=== PATIENT | male | born 1965 ===

== ENCOUNTER 2020-03-09 14:05 | Observation (INO) | payer SELFPAY ==
[2020-03-09 14:54] LABS: #Basophils 0.1 thou/uL (0.0-0.2); #Eosinphils 0.1 thou/uL (0.0-0.7); #Lymphocytes 1.6 thou/uL (1.20-3.40); #Monocytes 0.6 thou/uL (0.11-0.59); %Basophils 0.7 % (0.0-1.0); %Eosinophils 1.2 % (0.0-10.0); %Lymphocytes 15.2 % (21.0-51.0); %Monocytes 5.6 % (0.0-10.0); %Neutrophils 77.4 % (42.0-75.0); Hemoglobin 15.3 g/dL (14.0-18.0); Mean Corpuscular HGB CONC 34.2 g/dL (32.0-36.0); Mean Corpuscular Volume 96.4 fL (78.0-98.0); Mean Platelet Volume 8.1 fL (7.4-10.4); Platelet Count 280 thou/uL (130-400); Red Blood Cell (RBC) Count 4.64 mill/uL (4.70-6.10); White Blood Cell (WBC) Count 10.3 thou/uL (4.8-10.8)
[2020-03-09 15:18] LABS: ALT (SGPT) 14 U/L (8-55); AST (SGOT) 15 U/L (5-34); Albumin 4.3 g/dL (3.5-5.0); Alkaline Phosphatase 64 U/L (40-110); Anion Gap 16 mmol/L (10-20); BUN (Urea Nitrogen) 12 mg/dL (8.4-25.7); Bilirubin, Total 0.5 mg/dL (0.2-1.2); CK (CPK) 122 U/L (30-200); Calc. Creatinine Clearance 0 mL/min (70-130); Carbon Dioxide 24 mmol/L (22-29); Chloride 106 mmol/L (98-107); Estimated GFR-MDRD Greater than 90; Globulin 2.7 g/dL (2.4-3.5); Glucose 141 mg/dL (70-105); Lipase 17 U/L (8-78); Potassium 3.4 mmol/L (3.5-5.1); Sodium 143 mmol/L (136-145)
[2020-03-09] MEDS ORDERED: Ondansetron PF 4 MG/2 ML Vial ONE (15:52)
[2020-03-09] MEDS ORDERED: Morphine 4 MG/ML VIAL ONE (15:52)
--- NOTE | 2020-03-09 16:48 | RAD ---
CHEST 1 VIEW: Date: 03/09/2020 INDICATION: Chest pain with nausea and vomiting. COMPARISON: None. FINDINGS: Lungs are clear. Heart size is normal. No pleural effusion or pneumothorax is evident. No acute osseo us abnormality is evident. IMPRESSION: No acute cardiopulmonary abnormality. POS: BH
--- NOTE | 2020-03-09 17:54 | PDOC.HHP ---
Hospitalist HPI - History of Present Illness chest pain History of Present Illness: PCP: Dr. Johnnie Savage The patient is a 54-year-old male with a past medical history significant for coronary artery disease (on aspirin and Plavix), and hyperlipidemia that presents to the emergency department via EMS for the above complaint. The patient reports the onset of chest pain at approximately 8 AM this morning. He thought it was indigestion, related to eating [employer] the previous night. The pain is located left upper quadrant and left chest, nonradiating, described as "feels like indigestion", with associated belching, burping and bloating, exacerbated and relieved by nothing. He reports that the symptoms are similar to the symptoms he had when he had his heart attack. Patient has a history of C AD with 2 stents to his LAD (2016). Denies any heart palpitations, swelling to lower extremities. Denies tearing or shearing pain. Denies shortness of breath or cough. No history of COPD/asthma. No history of DVT/PE. He abuses marijuana. He denies any other illicit drug use. Denies any hemoptysis, hematemesis, melena or hematochezia. Denies any urinary symptoms. EMS was called. Patient was bradycardic HR 54, normal BP, RR, SPO2, afebrile. Patient was given full dose aspirin and 1 spray of sublingual nitro with no relief of symptoms. ED Course: VITAL SIGNS [facility] Mar 09, 2020 14:08 DANA Lewis Laine BP: 137/97, Pulse: 66, Resp: 22, Temp: 97.6 (Oral), Pain: 7, O2 sat: 100 on (Room Air), Time: 03/09/2020 14:08. VITAL SIGNS [facility] Mar 09, 2020 14:30 DANA Lewis Laine BP: 149/91, Pulse: 48, Resp: 12, Time: 03/09/2020 14:30. VITAL SIGNS [facility] Mar 09, 2020 15:10 DANA Lewis Laine BP: 130/90, Pulse: 58, Resp: 20, O2 sat: 100 on (Room Air), Time: 03/09/2020 15:10. VITAL SIGNS [facility] Mar 09, 2020 15:30 DANA Lewis Laine BP: 143/88, Pulse: 48, Resp: 16, O2 sat: 100 on (Room Air), Time: 03/09/2020 15:30. Zofran intravenous 4 mg IV Push Given 16:00 03/09/2020 morphine injection 4 mg IV Push Given 16:00 03/09/2020 Hospitalist ROS - Review of Systems All other systems reviewed; all pertinent +/- noted in HPI/Subj - Medication Medications: Plavix 75 mg p.o. daily Rosuvastatin 40 mg p.o. nightly Aspirin 81 mg p.o. daily Allergies: Penicillins Hospitalist History - Past Medical History Source: patient, RN notes reviewed Cardiac: reports: CAD (X2 (2017)), Hyperlipidemia - Past Surgical History Past Surgical History: reports: Other (CAD x2 (2017)) - Family History Family History: denies: cardiac disorder, respiratory disorder - Social History Smoking Status: Current every day smoker (1 pack/day) Alcohol: reports: None Drugs: reports: marijuana Living Situation: With Family Activity level: independent ambulation - Exam General Appearance: NAD, awake alert Eye: PERRL, anicteric sclera ENT: normocephalic atraumatic Neck: supple, symmetric Heart: RRR, no murmur, no gallops, no rubs, normal peripheral pulses Respiratory: CTAB, no wheezes, no rales, no ronchi, normal chest expansion, no tachypnea Gastrointestinal: soft, non-tender, non-distended, normal bowel sounds, no bruit, no guarding, no rigidity Extremities: no cyanosis, no edema Skin: no rashes (Right overall) Neurological: no weakness, no focal deficits. negative: facial droop, speech deficit Musculoskeletal: normal tone, normal strength Psychiatric: normal affect, A&O x 3 Hospitalist Results - Labs Result Diagrams: 03/09/20 14:43 03/09/20 14:42 Lab results: WBC 10.3 thou/uL (4.8-10.8) 03/09/20 14:43 Hgb 15.3 g/dL (14.0-18.0) 03/09/20 14:43 Hct 44.7 % (42.0-52.0) 03/09/20 14:43 MCV 96.4 fL (78.0-98.0) 03/09/20 14:43 Plt Count 280 thou/uL (130-400) 03/09/20 14:43 Neutrophils % 77.4 % (42.0-75.0) H 03/09/20 14:43 Sodium 143 mmol/L (136-145) 03/09/20 14:42 Potassium 3.4 mmol/L (3.5-5.1) L 03/09/20 14:42 Chloride 106 mmol/L (98-107) 03/09/20 14:42 Carbon Dioxide 24 mmol/L (22-29) 03/09/20 14:42 BUN 12 mg/dL (8.4-25.7) 03/09/20 14:42 Creatinine 0.76 mg/dL (0.7-1.3) 03/09/20 14:42 Glucose 141 mg/dL (70-105) H 03/09/20 14:42 Calcium 9.0 mg/dL (7.8-10.44) 03/09/20 14:42 Total Bilirubin 0.5 mg/dL (0.2-1.2) 03/09/20 14:42 AST 15 U/L (5-34) 03/09/20 14:42 ALT 14 U/L (8-55) 03/09/20 14:42 Alkaline Phosphatase 64 U/L (40-110) 03/09/20 14:42 Creatine Kinase 122 U/L (30-200) 03/09/20 14:42 Troponin I Less than 0.010 ng/mL (< 0.028) 03/09/20 14:42 Serum Total Protein 7.0 g/dL (6.0-8.3) 03/09/20 14:42 Albumin 4.3 g/dL (3.5-5.0) 03/09/20 14:42 Lipase 17 U/L (8-78) 03/09/20 14:42 - EKG Interpretation EKG: EKG shows sinus bradycardia with short OH otherwise normal EKG rate is 53 beats per. - Radiology Interpretation Chest x-ray Status: report reviewed by me Additional Comment: IMPRESSION: No acute cardiopulmonary abnormality. Hospitalist H&P A/P - Problem (1) Chest pain Code(s): R07.9 - CHEST PAIN, UNSPECIFIED Status: Acute (2) Bradycardia Code(s): R00.1 - BRADYCARDIA, UNSPECIFIED Status: Acute (3) CAD (coronary artery disease) Code(s): I25.10 - ATHSCL HEART DISEASE OF [place] CORONARY ARTERY W/O ANG PCTRS Status: Chronic (4) HLD (hyperlipidemia) Code(s): E78.5 - HYPERLIPIDEMIA, UNSPECIFIED Status: Chronic (5) Tobacco abuse Code(s): Z72.0 - TOBACCO USE Status: Chronic (6) Marijuana abuse Code(s): F12.10 - CANNABIS ABUSE, UNCOMPLICATED Status: Chronic - Plan Plan: 54/M with PMH CAD and HLD presents for chest pain. Admit to telemetry floor, observation status. Expected length of stay less than 2 midnights. EKG sinus bradycardia, no ST elevations. Chest x-ray negative for acute process. Initial troponin negative. #Chest pain Heart score 5, high risk. Wells PE score 0. Trend troponins, check BNP, TSH, FLP, mag, UA/UDS. Continue aspirin, SL nitro as needed, statin N.p.o. Nuc med cardiac stress test in the a.m. #Bradycardia EKG SB, 50s, no ST elevation. Order echocardiogram. Check electrolytes and TSH level. Continue cardiac monitoring. #Hypokalemia Mild. K 3.4. Check magnesium level. Recheck level in a.m. #CAD 2 stents to the LAD (2017) Continue home dose of aspirin and Plavix. #Hyperlipidemia Continue home dose rosuvastatin 40 mg nightly. Check FLP. #Tobacco abuse 1 pack/day history Unwilling to quit. Counseled tobacco cessation. #Marijuana abuse Unwilling to quit. Check UDS. SCDs for DVT prophylaxis. Protonix for GI prophylaxis. Full code. Designated medical decision-maker is his Clara. Discussed case with Dr. Diaz.
[2020-03-09] MEDS ORDERED: Mag-Al 1200 mg/1200 mg/30 ML UDCUP ONE (18:26)
[2020-03-09] MEDS ORDERED: Lidocaine Viscous Sol 2% 15 ml UD Cup ONE (18:26)
[2020-03-09] MEDS ORDERED: Nitroglycerin 0.4 MG TAB (25 Tab Bottle) SL PRN (18:42)
[2020-03-09] MEDS ORDERED: Calcium Carbonate 500 MG ChewTAB PO PRN (18:46)
[2020-03-09] MEDS ORDERED: Senokot S 8.6-50 MG TAB PO PRN (18:46)
[2020-03-09] MEDS ORDERED: Acetaminophen 325 MG TAB PO PRN (18:46)
[2020-03-09] MEDS ORDERED: Ondansetron ODT 4 MG TAB PO PRN (18:46)
[2020-03-09] MEDS ORDERED: Ondansetron PF 4 MG/2 ML Vial IVP PRN (18:46)
[2020-03-09 19:40] LABS: Troponin I Less than 0.010 ng/mL (< 0.028)
[2020-03-09 20:58] VITALS: BMI 22.2
[2020-03-09] MEDS ORDERED: Rosuvastatin 20 MG TAB PO SCH (21:00)
[2020-03-09] MEDS: Nitroglycerin 2% Ointment 1 INCH/1 GM Packet TOP SCH (21:49)
[2020-03-09] MEDS: Sodium Chloride 0.9% 1,000 ML IV SCH (21:49)
[2020-03-09 22:13] LABS: Troponin I Less than 0.010 ng/mL (< 0.028)
[2020-03-10 02:14] LABS: Bilirubin Negative (Negative); Blood, Urine Negative (Negative); Clarity Turbid (Clear); Glucose, Urine (Dipstick) Normal (Negative); Ketone, Urine 60 mg/dL (Negative); Leukocyte Negative Leu/uL (Negative); Mucous/LPF 2+ LPF (<2+); Nitrite Negative (Negative); Protein, Urine (Dipstick) 50 mg/dL (Neg-Trace); RBC/HPF 0-3 HPF (0-3); Specific Gravity, Urine 1.031 (1.002-1.036); Squamous Epithelial 0-3 HPF (0-3); Urobilinogen Normal mg/dL (Less than 2); pH, Urine 7.5 (5.0-9.0)
[2020-03-10 02:21] LABS: Bacteria/HPF 3+ HPF (None Seen)
[2020-03-10 02:47] LABS: Amphetamine Not Detected (NotDetected); Barbiturates Screen Not Detected (NotDetected); Benzodiazepine Screen Not Detected (NotDetected); Cocaine Metabolite Screen Detected (NotDetected); Medtox Reader # READER 4; Methadone Not Detected (NotDetected); Methamphetamine Not Detected (NotDetected); Opiate Screen Detected (NotDetected); Oxycodone Screen Not Detected (NotDetected); Phencyclidine (PCP) Not Detected (NotDetected); THC/Cannabinoid Screen Detected (NotDetected); Tricyclic Screen Not Detected (NotDetected)
[2020-03-10 02:48] LABS: Medtox Control Line Valid? VALID (VALID)
[2020-03-10 04:06] LABS: #Basophils 0.1 thou/uL (0.0-0.2); #Lymphocytes 1.6 thou/uL (1.20-3.40); #Monocytes 1.1 thou/uL (0.11-0.59); #Neutrophils 6.4 thou/uL (1.40-6.50); %Basophils 0.6 % (0.0-1.0); %Eosinophils 0.3 % (0.0-10.0); %Lymphocytes 17.1 % (21.0-51.0); %Monocytes 12.2 % (0.0-10.0); %Neutrophils 69.8 % (42.0-75.0); Hemoglobin 14.8 g/dL (14.0-18.0); Mean Corpuscular HGB CONC 33.8 g/dL (32.0-36.0); Mean Corpuscular Hemoglobin 32.9 pg (27.0-31.0); Mean Corpuscular Volume 97.4 fL (78.0-98.0); Mean Platelet Volume 8.1 fL (7.4-10.4); Platelet Count 260 thou/uL (130-400); RBC Distribution Width 11.9 % (11.5-14.5); Red Blood Cell (RBC) Count 4.51 mill/uL (4.70-6.10); White Blood Cell (WBC) Count 9.1 thou/uL (4.8-10.8)
[2020-03-10 04:13] LABS: Hemoglobin A1c 5.5 % (4.0-6.0)
[2020-03-10 04:28] LABS: Anion Gap 12 mmol/L (10-20); BUN (Urea Nitrogen) 11 mg/dL (8.4-25.7); Calc. Creatinine Clearance 115 mL/min (70-130); Calcium 8.8 mg/dL (7.8-10.44); Carbon Dioxide 25 mmol/L (22-29); Cardiac Risk 3.4 (Less than 4.5); Chloride 103 mmol/L (98-107); Cholesterol 192 mg/dl (< 200 Desired); Estimated GFR-MDRD Greater than 90; Glucose 120 mg/dL (70-105); HDL Cholesterol 57 mg/dL (>60 Neg Risk); LDL Cholesterol, Calculated 120 mg/dL; Potassium 3.6 mmol/L (3.5-5.1); Sodium 136 mmol/L (136-145); Triglycerides 77 mg/dL (Less than 150)
[2020-03-10] MEDS: Nitroglycerin 2% Ointment 1 INCH/1 GM Packet TOP SCH (07:33)
[2020-03-10] MEDS ORDERED: ALPRAZolam 0.25 MG TAB PO PRN (07:39)
[2020-03-10 08:14] VITALS: BP 108/63; TEMP 97.9
[2020-03-10] MEDS ORDERED: Aspirin 81 mg Enteric Coated Tablet PO SCH (09:00)
[2020-03-10] MEDS ORDERED: Pantoprazole 40 MG VIAL IVP SCH (09:00)
[2020-03-10] MEDS: Sodium Chloride 0.9% 1,000 ML IV SCH (09:05)
--- NOTE | 2020-03-10 09:38 | CON ---
DATE OF CONSULTATION: REASON FOR CONSULTATION: Chest pain. HISTORY OF PRESENT ILLNESS: Mr. Singleton is a 54-year-old gentleman, who is from [place]. He was at his mother's home, where he was doing some repairs. [facility] That morning, he awoke with significant nausea. Developed vomiting. Shortly after vomiting, he developed epigastric discomfort. He states there may have been some chest pressure, but unsure. No other associated ameliorating or exacerbating factors present. He is currently stable without any symptoms and would like to go home. PAST MEDICAL HISTORY: CAD, status post MD and stent placement; tobacco abuse; marijuana use; cocaine use; hyperlipidemia. FAMILY HISTORY: Negative for CAD. SOCIAL HISTORY: As above. HOME MEDICATIONS: Include; 1. Plavix. 2. Rosuvastatin. 3. Aspirin. ALLERGIES: PENICILLIN. REVIEW OF SYSTEMS: A 10-point review of systems is reviewed and as above, otherwise negative. PHYSICAL EXAMINATION: Vital Signs: Blood pressure 108/63, pulse 98, 97.9. General: The patient is a pleasant gentleman, in no acute distress, appears stated age. Head, Eyes, Ears, Nose and Throat: Sclerae without icterus. Mouth: Moist mucous membranes, normal palate. Neck: No jugular venous distention. Carotid upstroke is brisk. No bruits bilaterally. Lungs: Clear to auscultation. Heart: Regular rate and rhythm, normal S1 and S2. Abdomen: Soft, nontender, nondistended. Extremities: No edema. PERTINENT LABORATORY DATA: Hemoglobin 14.8, hematocrit 42.9. Creatinine 0.74. Troponin negative. DIAGNOSTIC STUDIES: EKG, normal sinus rhythm, normal EKG. IMPRESSION: 1. Atypical chest pain. 2. Coronary artery disease. 3. Status post myocardial infarction. 4. Status post stent placement. 5. Cocaine use. RECOMMENDATIONS: 1. Unknown whether symptoms are related to recent illicit drug use. Does have a history of CAD. 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 I presented with several options to Mr. Singleton including a noninvasive stress study versus coronary angiography. He states that he has a watch crystal grinder in [place] and he would like to follow up with his watch crystal grinder. He feels more comfortable doing the above instead of doing any testing in our institution. 2. Given his normal EKG and normal enzymes with atypical pain, we therefore recommend to continue medical therapy. We will continue with Plavix in addition to aspirin. Hold carvedilol due to bradycardia. I did state he could follow up with his watch crystal grinder next week. He desires not to proceed with any testing in our institution after my strong recommendation. Otherwise, from my standpoint, I have no further recommendations. Job ID: [id number]
--- NOTE | 2020-03-10 12:29 | DIS ---
DATE OF ADMISSION: 03/09/2020 DATE OF DISCHARGE: 03/10/2020 DISCHARGE DISPOSITION: Home. The patient signed against medical advice. FOLLOWUP: The patient was advised to follow up with his primary test technician. Prescription for sublingual nitroglycerin was sent to the pharmacy. He was advised to continue dual-antiplatelet therapy with statin. The patient was seen and examined on the day of discharge. Denies any new complaints. No chest pain, shortness of breath, palpitations, or lightheadedness reported. PHYSICAL EXAMINATION: VITAL SIGNS: Showed temperature 97.9 with pulse rate of 98, respirations of 18, blood pressure of 125/84, with O2 saturation 97% on room air. LUNGS: Clear to auscultation bilaterally. HEART: S1, S2 present. Regular rate and rhythm. No rubs or gallops. ABDOMEN: Soft, nontender. Bowel sounds present. EXTREMITIES: No edema or calf tenderness. LABORATORY FINDINGS: Urine drug screen positive for cocaine, cannabinoid, and opiates. Troponin x3 have been negative. Potassium on admission 3.4, this morning was 3.6. Fasting lipid profile showed triglycerides 77, cholesterol 192, LDL 120, and HDL 57. Chest x-ray was negative for infiltrate or edema. BRIEF HOSPITAL COURSE: The patient is a 54-year-old male with coronary artery disease, status post stent, presented to the emergency room with chest discomfort. Please refer to the history and physical for further details. The patient was admitted to the hospital with a diagnosis of chest discomfort, rule out acute coronary syndrome. His serial troponins remained negative. He was evaluated by Cardiology. A cardiac catheterization was recommended. The patient however decided to sign against medical advice and to follow up with his primary test technician in [place]. The patient understands the consequences of signing against medical advice, not limited to life threatening complications including . Lifestyle modification including drug cessation was emphasized. FINAL DIAGNOSES: 1. Chest discomfort, acute coronary syndrome ruled out. 2. Coronary artery disease, status post stent placement. 3. Hypokalemia. 4. Hypertension. 5. Hyperlipidemia. 6. Urine drug screen positive for cocaine, cannabinoid, and opiate. The patient understands the above plan of care. Job ID: [id number]
--- NOTE | 2020-03-15 13:07 | EKG ---
Test Reason : CP Blood Pressure : / mmHG Vent. Rate : 053 BPM Atrial Rate : 053 BPM P-R Int : 106 ms QRS Dur : 110 ms QT Int : 478 ms P-R-T Axes : 035 057 039 degrees QTc Int : 448 ms Sinus bradycardia with short OR Otherwise normal ECG Confirmed by MATIAS GARCIA ([id number]), marketing editor MANDIE CULVER ([id number] on 03/15/2020 1:07:21 PM Referred By: RADHA Confirmed By:MATIAS GARCIA
== END 2020-03-10 09:38 | disposition left against medical advice (07) ==
LOC: ERS 14:05 → INTOOBSV 18:14 → 2NO 18:14
PROVIDERS: ADMIT Student in an Organized Health Care Education/Training Program; ATTEND Student in an Organized Health Care Education/Training Program
DX: R07.89 Other chest pain (principal); I25.10 Atherosclerotic heart disease of native coronary artery without angina pectoris; E87.6 Hypokalemia; I10 Essential (primary) hypertension; E78.5 Hyperlipidemia, unspecified; R00.1 Bradycardia, unspecified; I25.2 Old myocardial infarction; F12.10 Cannabis abuse, uncomplicated; F17.210 Nicotine dependence, cigarettes, uncomplicated; Z53.29 Procedure and treatment not carried out because of patient's decision for other reasons; Z79.02 Long term (current) use of antithrombotics/antiplatelets; Z79.82 Long term (current) use of aspirin; Z79.899 Other long term (current) drug therapy; Z95.5 Presence of coronary angioplasty implant and graft
CPT/HCPCS: 36415; 71045; 80048; 80053; 80061; 80306; 81001; 82550; 83036; 83690; 83735; 83880; 84443; 84484; 85025; 87086; 93005; 94760; 96374; 96375; G0378; J2270; J2405